=== PATIENT | male | born 1985 | race Two or more races ===

== ENCOUNTER 2019-01-08 17:44 | Emergency (ER) | payer OTHER ==
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
[2019-01-08 18:03] VITALS: BP 156/97
== END 2019-01-08 18:15 ==
DX: Z02.89 Encounter for other administrative examinations (principal)